=== PATIENT | female | born 1940 | race Caucasian/White ===

== ENCOUNTER → 2017-03-19 | Outpatient (CLI) | payer BC | END | disposition home or self-care (01) | LOC: RAD.S 03-16 12:06 | DX: N64.52 Nipple discharge (principal); N63 Unspecified lump in breast; N60.01 Solitary cyst of right breast ==

== ENCOUNTER → 2017-03-26 | Outpatient (CLI) | payer BC, MEDICARE | END | disposition home or self-care (01) | LOC: RAD.S 09:21 | PROC: 0HBU3ZX Excision of Left Breast, Percutaneous Approach, Diagnostic (ICD-10-PCS; principal; 2017-03-26) | DX: D05.92 Unspecified type of carcinoma in situ of left breast (principal); N63 Unspecified lump in breast ==